=== PATIENT | female | born 1950 | race Caucasian/White ===

== ENCOUNTER 2017-12-01 08:26 | Day surgery (SDC) | payer MEDICARE, MEDICAID ==
[2017-11-24 14:39] LABS: BASOPHILS % (AUTO) 0.5 % (0-1); EOSINOPHILS # (AUTO) 0.3 X10'3 (0-0.9); EOSINOPHILS % (AUTO) 4.2 % (0-6); LYMPHOCYTES # (AUTO) 1.3 X10'3 (1.1-4.8); LYMPHOCYTES % (AUTO) 19.2 % (21-51); MEAN CORPUSCULAR HEMOGLOBIN 30.1 PG (27.0-31.0); MEAN CORPUSCULAR HGB CONC 33.5 % (33.0-36.5); MEAN CORPUSCULAR VOLUME 89.7 FL (78-98); MEAN PLATELET VOLUME 8.2 FL (7.4-10.4); MONOCYTES # (AUTO) 0.5 X10'3 (0-0.9); MONOCYTES % (AUTO) 6.8 % (2-12); NEUTROPHILS # (AUTO) 4.8 X10'3 (1.8-7.7); NEUTROPHILS % (AUTO) 69.3 % (42-75); PRE OP HEMATOCRIT 43.1 % (35.0-45.0); PRE OP HEMOGLOBIN 14.4 g/dL (12.0-16.0); PRE OP PLATELET COUNT 224 X10'3 (140-440); RED CELL DISTRIBUTION WIDTH 14.6 % (11.5-14.5)
[2017-11-24 14:45] LABS: PRE OP PROTIME 10.7 SECONDS (9.0-12.0)
[2017-11-24 14:57] LABS: ALBUMIN/GLOBULIN RATIO 1.2 (1.1-1.5); ALKALINE PHOSPHATASE 42 IU/L (46-116); BLOOD UREA NITROGEN 15 MG/DL (7-18); BUN/CREATININE RATIO 17.2 (6.6-38.0); CALCIUM 9.8 MG/DL (8.5-10.1); CHLORIDE 107 MMOL/L (99-107); CREATININE 0.87 MG/DL (0.40-0.90); PRE OP ALT 31 U/L (30-65); PRE OP ANION GAP 11 (8-16); PRE OP AST 29 U/L (10-37); PRE OP BILIRUB, TOTAL 0.4 MG/DL (0.0-1.0); PRE OP GLUCOSE 151 MG/DL (70-104); PRE OP POTASSIUM 4.1 MMOL/L (3.4-5.1); PRE OP SODIUM 145 MMOL/L (135-145); TOTAL CARBON DIOXIDE 27.2 MMOL/L (24-32); TOTAL PROTEIN 7.3 G/DL (6.4-8.2); eGFR 65 ML/MIN
[~2017-12-01] VITALS: Ht 162.6 cm; Wt 116.9 kg
[~2017-12-01 08:26] MED LIST: ACAR25TA2 PO; ACET-3068 PO; ALBU8.5H8 IH; AMIO200T57 PO; CLOP75TA15 PO; CYAN500L3 PO; ESTR0.6261 PO; FE F PO; FENO48TA15 PO; GABA300C PO; INSU100V12 SQ; LISI40TA4 PO; METF750T2 PO; NYSPWD TP; OMEG1CAP13 PO; PRAV80TA3 PO; SYN0.088T PO; VITC500T PO; [UNRECOGNIZED DRUG - OTHER] TOP; albuterol 2.5 MG/3 ML nebule NEB ONE; ceFAZolin inj. 2,000 MG in dextrose 5%-water 100 ML IV ONE; famotidine 20mg tablet PO ONE; ringers solution, lacted 1,000 ML IV SCH
[2017-12-01 08:45] VITALS: BP 140/84
[2017-12-01] MEDS ORDERED: LIDOcaine 1% (10mg/ml) 2ml vial ONE (09:04)
[2017-12-01] MEDS ORDERED: ringers solution, lacted 1,000 ML IV SCH (10:39)
[2017-12-01] MEDS ORDERED: proCHLORperazine 10 MG/2 ml inj IV PRN (10:40)
[2017-12-01] MEDS ORDERED: ondansetron/PF 4mg/2ml inj IV PRN (10:40)
[2017-12-01] MEDS ORDERED: morphine 4 MG/ML inj SYRINge IV PRN ×2 (10:40)
[2017-12-01] MEDS ORDERED: meperidine/PF 25mg/ml syringe IV PRN ×3 (10:40)
[2017-12-01] MEDS ORDERED: ROPIVAcaine 0.5% (5mg/ml) 30ml vial ONE (10:57)
[2017-12-01] MEDS ORDERED: LIDOcaine 0.5% (5mg/ml) 50ml vial ONE (11:00)
[2017-12-01] MEDS ORDERED: sevoflurane 250ml liquid IH ONE (11:01)
[2017-12-01] MEDS ORDERED: fentaNYL/PF 50MCG/1 ML 2ML syringe ONE ×2 (11:03→11:25)
[2017-12-01] MEDS ORDERED: midazolam 2 mg/2 ml injection ONE (11:03)
[2017-12-01] MEDS ORDERED: propofol inj 20 ML IV ONE (12:00)
[2017-12-01] MEDS ORDERED: ondansetron/PF 4mg/2ml inj ONE (12:00)
[2017-12-01 12:05] VITALS: BP 145/72
[2017-12-01 12:15] VITALS: BP 142/54
[2017-12-01] MEDS ORDERED: acetaminophen 1,000mg/100ml IV 100 ML IV ONE (12:20)
[2017-12-01 12:25] VITALS: BP 147/60
[2017-12-01 12:35] VITALS: BP 141/74
[2017-12-01 12:45] VITALS: BP 145/65
== END 2017-12-01 13:00 | disposition home or self-care (01) ==
LOC: PAS 08:26
PROVIDERS: ATTEND Orthopaedic Surgery Hand Surgery
DX: M18.11 Unilateral primary osteoarthritis of first carpometacarpal joint, right hand (principal); M65.341 Trigger finger, right ring finger; M25.741 Osteophyte, right hand; I49.1 Atrial premature depolarization; J45.998 Other asthma; I10 Essential (primary) hypertension; I25.2 Old myocardial infarction; I49.8 Other specified cardiac arrhythmias; E66.9 Obesity, unspecified; E11.9 Type 2 diabetes mellitus without complications; I25.10 Atherosclerotic heart disease of native coronary artery without angina pectoris; E78.5 Hyperlipidemia, unspecified; M19.90 Unspecified osteoarthritis, unspecified site; E03.9 Hypothyroidism, unspecified; F32.9 Major depressive disorder, single episode, unspecified; Z88.5 Allergy status to narcotic agent; Z88.6 Allergy status to analgesic agent; Z86.73 Personal history of transient ischemic attack (TIA), and cerebral infarction without residual deficits; Z79.891 Long term (current) use of opiate analgesic; Z79.84 Long term (current) use of oral hypoglycemic drugs; Z91.048 Other nonmedicinal substance allergy status; Z79.01 Long term (current) use of anticoagulants; Z90.49 Acquired absence of other specified parts of digestive tract; Z95.5 Presence of coronary angioplasty implant and graft; Z90.89 Acquired absence of other organs; Z90.710 Acquired absence of both cervix and uterus; Z79.4 Long term (current) use of insulin; Z79.899 Other long term (current) drug therapy; Z98.890 Other specified postprocedural states; Z68.41 Body mass index [BMI] 40.0-44.9, adult
CPT/HCPCS: 25445; 26055; 36415; 80053; 82948; 84443; 85025; 85610; 85730; 93005; J0131; J0690; J2001; J2175; J2250; J2270; J2405; J2704; J2795; J3010; J3490; J7060; J7120; A6222; A6449; A7000; L8630

== ENCOUNTER 2019-05-10 10:35 | Day surgery (SDC) | payer MEDICARE, MEDICAID ==
[2019-05-10] VITALS (7 sets, daily range): BP systolic 134–168; BP diastolic 70–84
[~2019-05-10] VITALS: Ht 162.6 cm; Wt 114.7 kg
[~2019-05-10 10:35] MED LIST changes: -AMIO200T57 PO; +AMIO200T61 PO; -METF750T2 PO; +METF750T46 PO; -albuterol 2.5 MG/3 ML nebule NEB ONE; -ceFAZolin inj. 2,000 MG in dextrose 5%-water 100 ML IV ONE; -famotidine 20mg tablet PO ONE; -ringers solution, lacted 1,000 ML IV SCH
[2019-05-10] MEDS ORDERED: normal saline 1,000 ML IV SCH (11:10)
[2019-05-10 11:25] LABS: BASOPHILS # (AUTO) 0.1 X10'3 (0-0.2); BASOPHILS % (AUTO) 1.3 % (0-1); EOSINOPHILS # (AUTO) 0.3 X10'3 (0-0.9); EOSINOPHILS % (AUTO) 6.5 % (0-6); HEMATOCRIT 43.3 % (35.0-45.0); HEMOGLOBIN 14.2 g/dl (12.0-16.0); LYMPHOCYTES # (AUTO) 1.1 X10'3 (1.1-4.8); LYMPHOCYTES % (AUTO) 27.4 % (21-51); MEAN CORPUSCULAR HEMOGLOBIN 29.9 PG (27.0-31.0); MEAN CORPUSCULAR HGB CONC 32.8 g/dL (33.0-36.5); MEAN CORPUSCULAR VOLUME 91.4 FL (78-98); MEAN PLATELET VOLUME 8.1 FL (7.4-10.4); MONOCYTES # (AUTO) 0.3 X10'3 (0-0.9); MONOCYTES % (AUTO) 8.3 % (2-12); NEUTROPHILS # (AUTO) 2.3 X10'3 (1.8-7.7); NEUTROPHILS % (AUTO) 56.5 % (42-75); PLATELET COUNT 202 X10'3 (140-440); RED BLOOD COUNT 4.74 X10'6 (4.20-5.60); RED CELL DISTRIBUTION WIDTH 14.8 % (11.5-14.5)
[2019-05-10 11:41] LABS: ALBUMIN 4.4 G/DL (3.4-5.0); ANION GAP 9 (8-16); BLOOD UREA NITROGEN 18 MG/DL (7-18); BUN/CREATININE RATIO 21.7 (6.6-38.0); CALCIUM 9.8 MG/DL (8.5-10.1); CHLORIDE 103 MMOL/L (99-107); CREATININE 0.83 MG/DL (0.40-0.90); GLUCOSE 201 MG/DL (70-104); MAGNESIUM 1.6 MG/DL (1.5-2.4); POTASSIUM 4.2 MMOL/L (3.5-5.1); SODIUM 139 MMOL/L (135-145); TOTAL CARBON DIOXIDE 27.1 MMOL/L (24-32); eGFR 68 ML/MIN
[2019-05-10] MEDS ORDERED: ASPI-611 PO (11:50)
[2019-05-10] MEDS ORDERED: ACET-2119 PO (11:50)
[2019-05-10] MEDS ORDERED: proCHLORperazine 10 MG/2 ml inj ONE (15:57)
[2019-05-10] MEDS ORDERED: fentaNYL/PF 50MCG/1 ML 2ML syringe ONE ×3 (15:58→16:54)
[2019-05-10] MEDS ORDERED: midazolam 2 mg/2 ml injection ONE ×3 (15:58→17:19)
[2019-05-10] MEDS ORDERED: vancomycin 1,000mg inj ONE (15:58)
[2019-05-10] MEDS ORDERED: LIDOcaine 1% W/epiNEPHrine 1:100,000 20ml vial ONE ×2 (15:58→16:55)
[2019-05-10] MEDS ORDERED: ceFAZolin 1GM/D5W- ADD-VANTAGE 100 ML IV ONE (15:58)
[2019-05-10] MEDS ORDERED: diphenhydrAMINE 50 mg/ml inj ONE (16:53)
[2019-05-10] MEDS ORDERED: normal saline 500ml IV soln 500 ML IV ONE (18:40)
[2019-05-10] MEDS ORDERED: HYDROcodone/acetaminophen 10/325mg tab PO PRN (18:40)
[2019-05-10] MEDS ORDERED: HYDROcodone/acetaminophen 5mg/325mg tablet PO PRN (18:40)
[2019-05-10] MEDS ORDERED: normal saline 1000ml 1,000 ML IV ONE (18:44)
== END 2019-05-10 20:00 | disposition home or self-care (01) ==
LOC: SSTAY O 10:35
PROVIDERS: ATTEND Internal Medicine Cardiovascular Disease
DX: I49.5 Sick sinus syndrome (principal); I25.10 Atherosclerotic heart disease of native coronary artery without angina pectoris; I25.2 Old myocardial infarction; I10 Essential (primary) hypertension; E78.5 Hyperlipidemia, unspecified; E11.9 Type 2 diabetes mellitus without complications; E03.9 Hypothyroidism, unspecified; J45.909 Unspecified asthma, uncomplicated; I48.0 Paroxysmal atrial fibrillation; Z86.73 Personal history of transient ischemic attack (TIA), and cerebral infarction without residual deficits; Z79.82 Long term (current) use of aspirin; Z79.01 Long term (current) use of anticoagulants; Z79.899 Other long term (current) drug therapy; Z98.890 Other specified postprocedural states; Z90.49 Acquired absence of other specified parts of digestive tract
CPT/HCPCS: 33208; 36415; 71045; 80048; 83735; 85025; 85610; 99152; 99153; C1785; C1894; C1898; J0690; J0780; J1200; J2250; J3010; J3370; J7030; J7040; J7050; 93005; A4620

== ENCOUNTER 2020-08-28 06:04 | Day surgery (SDC) | payer MEDICARE, MEDICAID ==
[2020-08-20 11:32] LABS: BASOPHILS % (AUTO) 0.9 % (0-1); EOSINOPHILS # (AUTO) 0.3 X10'3 (0-0.9); EOSINOPHILS % (AUTO) 6.9 % (0-6); LYMPHOCYTES # (AUTO) 0.9 X10'3 (1.1-4.8); LYMPHOCYTES % (AUTO) 21.1 % (21-51); MEAN CORPUSCULAR HEMOGLOBIN 30.1 PG (27.0-31.0); MEAN CORPUSCULAR HGB CONC 32.7 g/dL (33.0-36.5); MEAN CORPUSCULAR VOLUME 91.9 FL (78-98); MEAN PLATELET VOLUME 8.6 FL (7.4-10.4); MONOCYTES # (AUTO) 0.3 X10'3 (0-0.9); MONOCYTES % (AUTO) 7.8 % (2-12); NEUTROPHILS # (AUTO) 2.8 X10'3 (1.8-7.7); NEUTROPHILS % (AUTO) 63.3 % (42-75); PRE OP HEMOGLOBIN 13.1 g/dL (12.0-16.0); PRE OP PLATELET COUNT 189 X10'3 (140-440); RED BLOOD COUNT 4.35 X10'6 (4.20-5.60); RED CELL DISTRIBUTION WIDTH 14.8 % (11.5-14.5)
[2020-08-20 11:44] LABS: PRE OP PROTIME 10.8 SECONDS (9.0-12.0)
[2020-08-20 12:04] LABS: ALBUMIN/GLOBULIN RATIO 1.2 (1.1-1.5); ALKALINE PHOSPHATASE 41 IU/L (46-116); BLOOD UREA NITROGEN 16 MG/DL (7-18); CALCIUM 9.2 MG/DL (8.5-10.1); CHLORIDE 103 MMOL/L (99-107); CREATININE 0.84 MG/DL (0.40-0.90); PRE OP ALT 42 U/L (30-65); PRE OP ANION GAP 10 (8-16); PRE OP AST 55 U/L (10-37); PRE OP BILIRUB, TOTAL 0.4 MG/DL (0.0-1.0); PRE OP GLUCOSE 181 MG/DL (70-104); PRE OP SODIUM 141 MMOL/L (135-145); TOTAL CARBON DIOXIDE 27.9 MMOL/L (24-32); TOTAL PROTEIN 7.4 G/DL (6.4-8.2); eGFR 67 ML/MIN
[~2020-08-28] VITALS: Ht 162.6 cm; Wt 117.3 kg
[~2020-08-28 06:04] MED LIST changes: +AMA1T PO; +ASPI-611 PO; +CLON0.1T2 PO; -ESTR0.6261 PO; +LISI40TA13 PO; -LISI40TA4 PO; +NITR0.4T48 SL; +ceFAZolin 2gm in dextrose, iso 50 ML IV ONE; +famotidine 20mg tablet PO ONE; +ringers solution, lacted 1,000 ML IV SCH
[2020-08-28 06:25] VITALS: BP 141/95
[2020-08-28] MEDS ORDERED: BUPIVAcaine/PF 2.5 mg/ml (0.25%) 30ml vial ONE (06:53)
[2020-08-28] MEDS ORDERED: LIDOcaine 1% 30ml preserv. free vial ONE (07:25)
[2020-08-28] MEDS ORDERED: fentaNYL/PF 50MCG/1 ML 2ML syringe ONE (07:53)
[2020-08-28] MEDS ORDERED: midazolam 1 mg/ML 2ml injection ONE ×2 (07:54→08:43)
[2020-08-28] MEDS ORDERED: ketorolac trometh. 30mg/ml inj. ONE (07:55)
[2020-08-28] MEDS ORDERED: LIDOcaine 2% (20mg/ml) 5ml vial ONE (08:44)
[2020-08-28] MEDS ORDERED: propofol inj 20 ML IV ONE (08:44)
[2020-08-28 09:07] VITALS: BP 128/65
--- NOTE | 2020-08-28 09:07 | NUR ---
Received from OR via [facility], accompanied by Anesthesiologist and report given by Anesthesiologist. PATIENT IS LAYING IN GURNEY, AWAKE AND ALERT, PIC ON LEFT HAND 20G LR RUNNING, RIGHT HAND WITH BANDAGE AND WRAP CDI, PATIENT IS ABLE TO WIGGLE HER FINGERS ON LEFT HAND, STATES RIGHT THUMB IS THROBBING, WILL MONITOR. Addendum: 08/28/20 at 0917 by Shantell Cardoza RN Amended: Links added.
--- NOTE | 2020-08-28 09:13 | NUR ---
Received from OR via [facility] , accompanied by Anesthesiologist and report given by Anesthesiolgist.
[2020-08-28 09:20] VITALS: BP 124/61
[2020-08-28] MEDS ORDERED: HYDROcodone/acetaminophen 10/325mg tab PO ONE (09:20)
[2020-08-28 09:30] VITALS: BP 119/64
[2020-08-28 09:40] VITALS: BP 140/64
[2020-08-28 09:50] VITALS: BP 141/72
--- NOTE | 2020-08-28 09:57 | NUR ---
PATIENT IS WAKE AND ALERT, VERBALIZED UNDERSTANDING FOR DISCHARGE INSTRUCTIONS. 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 PIV REMOVED FROM LEFT HAND 20G INTACT, RIGHT HAND AND WRIST WITH DRESSING AND WRAP CDI, PATIENT IS ABLE TO MOVE RIGHT FINGERS AND CAP REFILL OF 2-3 SEC ON RIGHT HAND AND FINGERS, PATIENT'S PAIN ON RIGHT THUMB IS UNDER CONTROL AND PATIENT IS NOT IN DISTRESS. ICE ON RIGHT HAND. Addendum: 08/28/20 at 1012 by Shantell Cardoza RN Amended: Links added.
== END 2020-08-28 09:57 | disposition home or self-care (01) ==
LOC: PAS 06:04
PROVIDERS: ATTEND Orthopaedic Surgery Hand Surgery
DX: T84.84XA Pain due to internal orthopedic prosthetic devices, implants and grafts, initial encounter (principal); M18.11 Unilateral primary osteoarthritis of first carpometacarpal joint, right hand; E11.9 Type 2 diabetes mellitus without complications; M19.90 Unspecified osteoarthritis, unspecified site; Z95.5 Presence of coronary angioplasty implant and graft; Z98.890 Other specified postprocedural states; Z90.710 Acquired absence of both cervix and uterus; Z85.828 Personal history of other malignant neoplasm of skin; Z79.01 Long term (current) use of anticoagulants; Z88.8 Allergy status to other drugs, medicaments and biological substances; I48.91 Unspecified atrial fibrillation; Z86.718 Personal history of other venous thrombosis and embolism; E66.9 Obesity, unspecified; Z95.0 Presence of cardiac pacemaker; Y83.8 Other surgical procedures as the cause of abnormal reaction of the patient, or of later complication, without mention of misadventure at the time of the procedure; Z68.41 Body mass index [BMI] 40.0-44.9, adult
CPT/HCPCS: 20680; 25447; 36415; 80053; 85025; 85610; 85730; 87635; 93005; A6222; J1885; J2001; J2250; J2704; J3010; J3490; A4215; A4615; J7120

== ENCOUNTER 2023-09-01 16:42 | Emergency (ER) | payer MEDICARE, MEDICAID ==
[~2023-09-01] VITALS: Ht 162.6 cm; Wt 100.0 kg
[~2023-09-01 16:42] MED LIST changes: +ALBU8.5H17 IH; -ALBU8.5H8 IH; +AMI200T PO; -AMIO200T61 PO; +OMEG-5 PO; -OMEG1CAP13 PO; -ceFAZolin 2gm in dextrose, iso 50 ML IV ONE; -famotidine 20mg tablet PO ONE; -ringers solution, lacted 1,000 ML IV SCH
[2023-09-01 16:56] VITALS: BP 111/72; PULSE 63; TEMP 98.1; O2SAT 97
[2023-09-01 18:19] LABS: BASOPHILS % (AUTO) 0.8 % (0-1); EOSINOPHILS # (AUTO) 0.1 X10'3 (0-0.9); EOSINOPHILS % (AUTO) 3.6 % (0-6); HEMATOCRIT 36.8 % (35.0-45.0); HEMOGLOBIN 11.9 g/dl (12.0-16.0); LYMPHOCYTES # (AUTO) 1.1 X10'3 (1.1-4.8); LYMPHOCYTES % (AUTO) 27.4 % (21-51); MEAN CORPUSCULAR HEMOGLOBIN 31.7 PG (27.0-31.0); MEAN CORPUSCULAR HGB CONC 32.5 g/dL (33.0-36.5); MEAN CORPUSCULAR VOLUME 97.7 FL (78-98); MEAN PLATELET VOLUME 7.8 FL (7.4-10.4); MONOCYTES # (AUTO) 0.3 X10'3 (0-0.9); MONOCYTES % (AUTO) 8.5 % (2-12); NEUTROPHILS # (AUTO) 2.3 X10'3 (1.8-7.7); NEUTROPHILS % (AUTO) 59.7 % (42-75); PLATELET COUNT 170 X10'3 (140-440); RED BLOOD COUNT 3.76 X10'6 (4.20-5.60); RED CELL DISTRIBUTION WIDTH 14.9 % (11.5-14.5); WHITE BLOOD COUNT 3.9 X10'3 (4.5-11.0)
[2023-09-01 18:35] LABS: ALBUMIN 3.7 G/DL (3.4-5.0); ANION GAP 9 (8-16); BLOOD UREA NITROGEN 20 MG/DL (7-18); BUN/CREATININE RATIO 23.5 (10.0-20.0); CALCIUM 8.6 MG/DL (8.5-10.1); CHLORIDE 106 MMOL/L (99-107); CREATININE 0.85 MG/DL (0.40-0.90); GLUCOSE 154 MG/DL (70-104); POTASSIUM 3.9 MMOL/L (3.5-5.1); PRO BRAIN NATRIURETIC PEPTIDE 180 PG/ML (0-125); SODIUM 142 MMOL/L (135-145); eCRCL 51 ML/MIN; eGFR 66 ML/MIN
[2023-09-01] MEDS ORDERED: AMOX-117 PO (19:26)
[2023-09-01] MEDS ORDERED: DOXY-457 PO (19:26)
[2023-09-01] MEDS ORDERED: PRED20TA PO (19:27)
[2023-09-01 19:40] VITALS: RESP 16
== END 2023-09-01 19:41 | disposition home or self-care (01) ==
LOC: ER 16:42
DX: J20.9 Acute bronchitis, unspecified (principal); J01.00 Acute maxillary sinusitis, unspecified; I11.0 Hypertensive heart disease with heart failure; E11.9 Type 2 diabetes mellitus without complications; Z88.1 Allergy status to other antibiotic agents; Z79.899 Other long term (current) drug therapy; Z88.5 Allergy status to narcotic agent; Z88.6 Allergy status to analgesic agent
CPT/HCPCS: 36415; 71046; 80048; 83605; 83880; 85025; 87040; 99284

== ENCOUNTER 2023-09-09 12:48 | Emergency (ER) | payer MEDICARE, MEDICAID ==
[~2023-09-09] VITALS: Ht 162.6 cm; Wt 97.5 kg
[~2023-09-09 12:48] MED LIST changes: +AMOX-117 PO; +DOXY-457 PO
[2023-09-09 12:52] VITALS: BP 164/99; PULSE 78; RESP 16; TEMP 97.7; O2SAT 99
== END 2023-09-09 14:36 | disposition home or self-care (01) ==
LOC: ER 12:50
DX: R05.9 Cough, unspecified (principal); I10 Essential (primary) hypertension; I25.10 Atherosclerotic heart disease of native coronary artery without angina pectoris; E11.9 Type 2 diabetes mellitus without complications; M19.90 Unspecified osteoarthritis, unspecified site; Z88.8 Allergy status to other drugs, medicaments and biological substances; Z79.899 Other long term (current) drug therapy; Z79.4 Long term (current) use of insulin; Z79.82 Long term (current) use of aspirin
CPT/HCPCS: 71046; 99283

== ENCOUNTER 2023-09-29 15:37 | Emergency (ER) | payer MEDICARE, MEDICAID ==
[~2023-09-29] VITALS: Ht 162.6 cm; Wt 98.9 kg
[~2023-09-29 15:37] MED LIST changes: -AMOX-117 PO; -DOXY-457 PO
[2023-09-29 15:39] VITALS: BP 156/91; PULSE 74; TEMP 98; O2SAT 97
[2023-09-29 16:06] VITALS: RESP 17
[2023-09-29] MEDS: oxyCODONE/APAP 5-325mg tablet PO ONE (16:06)
== END 2023-09-29 17:13 | disposition home or self-care (01) ==
LOC: ER 15:37
DX: M79.671 Pain in right foot (principal); I25.10 Atherosclerotic heart disease of native coronary artery without angina pectoris; I10 Essential (primary) hypertension; E11.9 Type 2 diabetes mellitus without complications; M19.90 Unspecified osteoarthritis, unspecified site; Z88.8 Allergy status to other drugs, medicaments and biological substances
CPT/HCPCS: 73630; 99283

== ENCOUNTER 2024-04-07 16:12 | Inpatient (IN) | payer MEDICARE, MEDICAID ==
[~2024-04-07] VITALS: Ht 162.6 cm; Wt 91.9 kg
[~2024-04-07 16:12] MED LIST changes: -AMA1T PO; +GLIM1TAB57 PO
[2024-04-07 17:02] LABS: BILIRUBIN,URINE NEGATIVE (Neg); CLARITY,URINE CLOUDY (Clear); COLOR,URINE YELLOW (Yellow); GLUCOSE, URINE NEGATIVE (Neg); KETONES,URINE NEGATIVE (Neg); LEUKOCYTE ESTERASE ,URINE SMALL (Neg); NITRITES, URINE NEGATIVE (Neg); OCCULT BLOOD,URINE NEGATIVE (Neg); PH,URINE 7.5 (4.8-8.0); PROTEIN,URINE TRACE mg/dl (Neg); UA COLLECTION TYPE CLN CATCH MIDSTREAM
[2024-04-07 17:09] LABS: MUCUS STRANDS FEW /LPF (Neg); SQUAMOUS EPITHELIAL CELL,UR MODERATE /LPF (FEW)
[2024-04-07 17:10] LABS: BACTERIA,URINE 1+ /HPF (Neg); RBC,URINE 0-2 /HPF (0-2)
[2024-04-07] MEDS: acetaminophen 1,000mg/100ml IV 100 ML IV STA (17:16)
[2024-04-07] MEDS ORDERED: cefepime 1GM/NS ADD-VANTAGE 100 ML IV ONE (17:20)
[2024-04-07 17:58] LABS: ALANINE AMINOTRANSFERASE 21 U/L (12-78); ALBUMIN 3.7 G/DL (3.4-5.0); ALKALINE PHOSPHATASE 42 IU/L (46-116); ANION GAP 7 (8-16); ASPARTATE AMINO TRANSFERASE 29 U/L (10-37); BILIRUBIN,DIRECT 0.5 MG/DL (0-0.3); BILIRUBIN,TOTAL 1.2 MG/DL (0.1-1.0); BLOOD UREA NITROGEN 15 MG/DL (7-18); BUN/CREATININE RATIO 16.1 (10.0-20.0); CALCIUM 9.4 MG/DL (8.5-10.1); CHLORIDE 101 MMOL/L (99-107); CREATININE 0.93 MG/DL (0.40-0.90); GLUCOSE 130 MG/DL (70-104); MAGNESIUM 1.8 MG/DL (1.5-2.4); POTASSIUM 4.2 MMOL/L (3.5-5.1); SODIUM 136 MMOL/L (135-145); TOTAL PROTEIN 7.4 G/DL (6.4-8.2); eCRCL 47 ML/MIN; eGFR 59 ML/MIN
[2024-04-07] MEDS: CefTRIAXone/D5W-Rocephin 1gm 50 ML IV ONE (18:13)
[2024-04-07 19:28] LABS: BASOPHILS % (AUTO) 0.3 % (0-1); EOSINOPHILS % (AUTO) 0.3 % (0-6); HEMATOCRIT 38.4 % (35.0-45.0); HEMOGLOBIN 12.7 g/dl (12.0-16.0); LYMPHOCYTES # (AUTO) 0.3 X10'3 (1.1-4.8); LYMPHOCYTES % (AUTO) 5.3 % (21-51); MEAN CORPUSCULAR HEMOGLOBIN 31.9 PG (27.0-31.0); MEAN CORPUSCULAR VOLUME 96.7 FL (78-98); MEAN PLATELET VOLUME 8.6 FL (7.4-10.4); MONOCYTES # (AUTO) 0.4 X10'3 (0-0.9); MONOCYTES % (AUTO) 8.9 % (2-12); NEUTROPHILS # (AUTO) 4.1 X10'3 (1.8-7.7); NEUTROPHILS % (AUTO) 85.2 % (42-75); RED BLOOD COUNT 3.97 X10'6 (4.20-5.60); WHITE BLOOD COUNT 4.8 X10'3 (4.5-11.0)
[2024-04-07 19:59] LABS: PLATELET COUNT 93 X10'3 (140-440)
[2024-04-07] MEDS ORDERED: ondansetron/PF 4mg/2ml inj IV PRN (21:40)
[2024-04-07] MEDS ORDERED: morphine 2 MG/ML inj. syringe IV PRN (21:40)
[2024-04-07 23:10] LABS: FREE T4 (FREE THYROXINE) 1.75 NG/DL (0.73-1.40); THYROID STIMULATING HORMONE 0.92 ulU/ml (0.34-4.50)
[2024-04-07] MEDS ORDERED: glucagon, human recombinant 1mg kit SUBCUT PRN (23:35)
[2024-04-07] MEDS ORDERED: dextrose 50%-water 50ml dispensing syringe IV PRN ×2 (23:35)
[2024-04-07] MEDS ORDERED: DEXTROSE 15 GM of carb/4 tabs (each vial/BOTTLE has 4 tablets) PO PRN ×2 (23:35)
[2024-04-08] MEDS: acetaminophen 1,000mg/100ml IV 100 ML IV SCH (01:33)
[2024-04-08 03:01] LABS: BASOPHILS % (AUTO) 0.3 % (0-1); EOSINOPHILS % (AUTO) 0.2 % (0-6); HEMATOCRIT 39.2 % (35.0-45.0); LYMPHOCYTES # (AUTO) 0.3 X10'3 (1.1-4.8); LYMPHOCYTES % (AUTO) 6.8 % (21-51); MEAN CORPUSCULAR HEMOGLOBIN 32.1 PG (27.0-31.0); MEAN CORPUSCULAR HGB CONC 33.1 g/dL (33.0-36.5); MEAN CORPUSCULAR VOLUME 97.1 FL (78-98); MEAN PLATELET VOLUME 8.5 FL (7.4-10.4); MONOCYTES # (AUTO) 0.5 X10'3 (0-0.9); MONOCYTES % (AUTO) 9.9 % (2-12); NEUTROPHILS % (AUTO) 82.8 % (42-75); PLATELET COUNT 106 X10'3 (140-440); RED BLOOD COUNT 4.03 X10'6 (4.20-5.60); WHITE BLOOD COUNT 4.8 X10'3 (4.5-11.0)
[2024-04-08 03:08] LABS: ALBUMIN 2.9 G/DL (3.4-5.0); ANION GAP 8 (8-16); BLOOD UREA NITROGEN 13 MG/DL (7-18); BUN/CREATININE RATIO 16.3 (10.0-20.0); CALCIUM 8.8 MG/DL (8.5-10.1); CHLORIDE 100 MMOL/L (99-107); GLUCOSE 147 MG/DL (70-104); POTASSIUM 3.9 MMOL/L (3.5-5.1); SODIUM 132 MMOL/L (135-145); TOTAL CARBON DIOXIDE 23.6 MMOL/L (24-32); eCRCL 54 ML/MIN; eGFR 70 ML/MIN
[2024-04-08] MEDS: INSULIN LISPRO 100 UNIT/ML INSULN.PEN MULTI-DOSE SQ SCH (07:00)
[2024-04-08] MEDS: acetaminophen 325mg tablet PO PRN (07:04)
[2024-04-08 08:00] VITALS: RESP 16
[2024-04-08] MEDS: aspirin 81mg, enteric-coated 1 TAB TABLET.DR PO SCH (08:00)
[2024-04-08] MEDS: enoxaparin 40mg/0.4ml syringe SUBCUT SCH (08:00)
[2024-04-08] MEDS: amiodarone 200mg tablet PO SCH (08:00)
[2024-04-08 08:44] VITALS: BP 132/62; PULSE 74; RESP 19; TEMP 98.7; O2SAT 98
[2024-04-08] MEDS: lisinopril 5mg tablet PO SCH (08:53)
[2024-04-08] MEDS: levoTHYROXINE 75mcg tablet PO SCH (08:54)
[2024-04-08] MEDS: LIDOcaine 5% patch TP SCH (08:55)
[2024-04-08 10:00] VITALS: BP 125/61; PULSE 63; RESP 20; TEMP 98.1; O2SAT 94
[2024-04-08] MEDS: CefTRIAXone/D5W-Rocephin 1gm 50 ML IV SCH (17:45)
[2024-04-08 18:00] VITALS: BP 138/64; PULSE 65; RESP 20; TEMP 99.3; O2SAT 98
[2024-04-08 20:00] VITALS: RESP 20; O2SAT 98
[2024-04-08] MEDS: FE FUMARATE PO SCH (20:00)
[2024-04-08] MEDS: [UNRECOGNIZED DRUG - OTHER] PO SCH (20:00)
[2024-04-08] MEDS: VIT C PO SCH (20:00)
[2024-04-08] MEDS: atorvastatin 10mg tablet PO SCH (20:16)
[2024-04-08] MEDS: gabapentin 300mg capsule PO SCH (20:16)
[2024-04-08] MEDS: insulin glargine (Lantus) pen - multi-dose SQ SCH (20:23)
[2024-04-08 22:00] VITALS: BP 114/57; PULSE 65; RESP 13; TEMP 99.8; O2SAT 97
[2024-04-08] MEDS: nystatin 15 GM powder TP PRN (23:33)
[2024-04-09 06:00] VITALS: BP_SYST 106; BP_SYST 83; BP_DIAS 45; BP_DIAS 52; PULSE 64; PULSE 70; RESP 13; TEMP 97.1; O2SAT 97
[2024-04-09 06:05] LABS: BASOPHILS % (AUTO) 0.5 % (0-1); EOSINOPHILS # (AUTO) 0.1 X10'3 (0-0.9); HEMATOCRIT 36.1 % (35.0-45.0); LYMPHOCYTES # (AUTO) 0.6 X10'3 (1.1-4.8); MEAN CORPUSCULAR HGB CONC 33.2 g/dL (33.0-36.5); MEAN CORPUSCULAR VOLUME 96.3 FL (78-98); MEAN PLATELET VOLUME 8.3 FL (7.4-10.4); MONOCYTES # (AUTO) 0.6 X10'3 (0-0.9); MONOCYTES % (AUTO) 16.4 % (2-12); NEUTROPHILS # (AUTO) 2.3 X10'3 (1.8-7.7); NEUTROPHILS % (AUTO) 65.1 % (42-75); PLATELET COUNT 114 X10'3 (140-440); RED BLOOD COUNT 3.75 X10'6 (4.20-5.60); RED CELL DISTRIBUTION WIDTH 13.5 % (11.5-14.5); WHITE BLOOD COUNT 3.5 X10'3 (4.5-11.0)
[2024-04-09 06:08] LABS: ALBUMIN 2.7 G/DL (3.4-5.0); ANION GAP 7 (8-16); BLOOD UREA NITROGEN 13 MG/DL (7-18); BUN/CREATININE RATIO 17.1 (10.0-20.0); CALCIUM 8.7 MG/DL (8.5-10.1); CHLORIDE 101 MMOL/L (99-107); CREATININE 0.76 MG/DL (0.40-0.90); GLUCOSE 113 MG/DL (70-104); POTASSIUM 3.7 MMOL/L (3.5-5.1); SODIUM 133 MMOL/L (135-145); TOTAL CARBON DIOXIDE 25.3 MMOL/L (24-32); eCRCL 57 ML/MIN; eGFR 75 ML/MIN
[2024-04-09 07:28] LABS: PLATELET ESTIMATE DECREASED; TOTAL CELLS COUNTED 100
[2024-04-09] MEDS: gabapentin 300mg capsule PO SCH (07:53)
[2024-04-09] MEDS: clopidogrel 75mg tablet PO SCH (07:53)
[2024-04-09] MEDS: cyanocobalamin 500mcg tablet PO SCH (07:54)
[2024-04-09] MEDS: fenofibrate 48mg tablet PO SCH (07:54)
[2024-04-09] MEDS: ascorbic acid 500mg tablet PO SCH (07:54)
[2024-04-09] MEDS: amiodarone 100mg tablet PO SCH (07:56)
[2024-04-09 08:00] VITALS: RESP 17; O2SAT 98
[2024-04-09 10:00] VITALS: BP 96/58; PULSE 60; RESP 17; TEMP 98.7; O2SAT 98
[2024-04-10 06:00] VITALS: BP 122/68; PULSE 60; RESP 14; TEMP 97.1; O2SAT 98
[2024-04-10 06:12] LABS: ALBUMIN 2.6 G/DL (3.4-5.0); ANION GAP 6 (8-16); BLOOD UREA NITROGEN 14 MG/DL (7-18); BUN/CREATININE RATIO 19.4 (10.0-20.0); CALCIUM 8.9 MG/DL (8.5-10.1); CHLORIDE 102 MMOL/L (99-107); CREATININE 0.72 MG/DL (0.40-0.90); GLUCOSE 103 MG/DL (70-104); POTASSIUM 3.7 MMOL/L (3.5-5.1); SODIUM 135 MMOL/L (135-145); TOTAL CARBON DIOXIDE 27.2 MMOL/L (24-32); eCRCL 60 ML/MIN; eGFR 79 ML/MIN
[2024-04-10 06:18] LABS: EOSINOPHILS # (AUTO) 0.1 X10'3 (0-0.9); EOSINOPHILS % (AUTO) 3.3 % (0-6); HEMATOCRIT 36.4 % (35.0-45.0); HEMOGLOBIN 12.2 g/dl (12.0-16.0); LYMPHOCYTES # (AUTO) 0.7 X10'3 (1.1-4.8); LYMPHOCYTES % (AUTO) 21.3 % (21-51); MEAN CORPUSCULAR HEMOGLOBIN 32.1 PG (27.0-31.0); MEAN CORPUSCULAR HGB CONC 33.5 g/dL (33.0-36.5); MEAN CORPUSCULAR VOLUME 95.8 FL (78-98); MEAN PLATELET VOLUME 8.6 FL (7.4-10.4); MONOCYTES # (AUTO) 0.4 X10'3 (0-0.9); MONOCYTES % (AUTO) 13.5 % (2-12); NEUTROPHILS % (AUTO) 60.9 % (42-75); PLATELET COUNT 129 X10'3 (140-440); RED BLOOD COUNT 3.79 X10'6 (4.20-5.60); RED CELL DISTRIBUTION WIDTH 13.9 % (11.5-14.5); WHITE BLOOD COUNT 3.2 X10'3 (4.5-11.0)
[2024-04-10 07:00] VITALS: RESP 14; O2SAT 98
[2024-04-10] MEDS ORDERED: piperacillin/tazo 4.5gm/100ml 100 ML IV SCH (08:05)
[2024-04-10] MEDS ORDERED: ertapenem sod inj 1 GM in normal saline 100ml IV soln 100 ML IV SCH (08:15)
[2024-04-10] MEDS ORDERED: ertapenem sod inj 1 GM in normal saline 100ml IV soln 110 ML IV SCH (08:44)
[2024-04-10 10:00] VITALS: BP 100/60; PULSE 59; RESP 17; TEMP 97.6; O2SAT 99
[2024-04-10] MEDS: ertapenem sod inj 1 GM in normal saline 100ml IV soln 100 ML IV SCH (10:00)
[2024-04-10 14:20] VITALS: RESP 16; O2SAT 98
[2024-04-10 14:50] VITALS: BP 158/88; PULSE 65; RESP 16; TEMP 98; O2SAT 98
== END 2024-04-10 14:35 | disposition home health service (06) | DRG 872 ==
LOC: ER 16:12 → OBSVTOIN 21:42 → SUR 3N 21:42 → ED HOLD 21:42 → UNDOADMOB 21:42 → EDBEDREQ 04-08 02:52 → SUR 3N 04-08 07:25 → ED HOLD 04-08 07:25 → OBSVTOIN 04-08 08:19 → INTOOBSV 04-08 08:19
PROVIDERS: ADMIT Internal Medicine Critical Care Medicine; ATTEND Family Medicine
PROC: 05HB33Z Insertion of Infusion Device into Right Basilic Vein, Percutaneous Approach (ICD-10-PCS; principal; 2024-04-10)
DX: A41.51 Sepsis due to Escherichia coli [E. coli] (principal); N39.0 Urinary tract infection, site not specified; E87.1 Hypo-osmolality and hyponatremia; I48.20 Chronic atrial fibrillation, unspecified; Z20.822 Contact with and (suspected) exposure to COVID-19; I10 Essential (primary) hypertension; E03.9 Hypothyroidism, unspecified; I49.5 Sick sinus syndrome; E78.5 Hyperlipidemia, unspecified; I25.10 Atherosclerotic heart disease of native coronary artery without angina pectoris; E11.9 Type 2 diabetes mellitus without complications; Z95.0 Presence of cardiac pacemaker; Z95.5 Presence of coronary angioplasty implant and graft; Z90.710 Acquired absence of both cervix and uterus; Z88.8 Allergy status to other drugs, medicaments and biological substances; Z91.09 Other allergy status, other than to drugs and biological substances; Z79.84 Long term (current) use of oral hypoglycemic drugs; Z79.899 Other long term (current) drug therapy
CPT/HCPCS: 36410; 36415; 71045; 76536; 76770; 76942; 80048; 80076; 81001; 83036; 83605; 83735; 84145; 84439; 84443; 84484; 85007; 85025; 87040; 87077; 87081; 87088; 87186; 87811; 93005; 97161; 97530; 99285; A6449; C1751; G0378; J0131; J0696; J1335; J1815

== ENCOUNTER 2024-04-30 10:31 | Emergency (ER) | payer MEDICARE, MEDICAID ==
[~2024-04-30] VITALS: Ht 162.6 cm; Wt 93.0 kg
[2024-04-30 10:40] VITALS: BP 127/79; PULSE 78; RESP 16; TEMP 97.6; O2SAT 99
== END 2024-04-30 12:01 | disposition home or self-care (01) ==
LOC: ER 10:32
DX: M25.562 Pain in left knee (principal); I25.10 Atherosclerotic heart disease of native coronary artery without angina pectoris; I10 Essential (primary) hypertension; E11.9 Type 2 diabetes mellitus without complications; M19.90 Unspecified osteoarthritis, unspecified site; Z98.890 Other specified postprocedural states; Z88.8 Allergy status to other drugs, medicaments and biological substances; Z88.6 Allergy status to analgesic agent; Z79.82 Long term (current) use of aspirin; Z79.4 Long term (current) use of insulin; Z79.899 Other long term (current) drug therapy
CPT/HCPCS: 73564; 99283; A6449

== ENCOUNTER 2024-05-04 12:50 | Emergency (ER) | payer MEDICARE, MEDICAID ==
[~2024-05-04] VITALS: Ht 162.6 cm; Wt 91.8 kg
[2024-05-04 13:16] LABS: BILIRUBIN,URINE NEGATIVE (Neg); CLARITY,URINE CLEAR (Clear); COLOR,URINE YELLOW (Yellow); GLUCOSE, URINE NEGATIVE (Neg); KETONES,URINE TRACE mg/dl (Neg); LEUKOCYTE ESTERASE ,URINE TRACE (Neg); NITRITES, URINE NEGATIVE (Neg); OCCULT BLOOD,URINE NEGATIVE (Neg); PROTEIN,URINE NEGATIVE (Neg)
[2024-05-04 13:20] LABS: UA COLLECTION TYPE CLN CATCH MIDSTREAM
[2024-05-04 13:22] LABS: BACTERIA,URINE FEW /HPF (Neg); MUCUS STRANDS FEW /LPF (Neg); RBC,URINE 0-2 /HPF (0-2); SQUAMOUS EPITHELIAL CELL,UR MODERATE /LPF (FEW)
[2024-05-04] MEDS: sulfamethoxazole/trimethoprim DS (800/160mg) tablet PO STA (15:11)
[2024-05-04] MEDS ORDERED: SULF1TAB49 PO (15:19)
[2024-05-04 15:25] VITALS: BP 130/62; PULSE 81; RESP 16; TEMP 98.1; O2SAT 99
== END 2024-05-04 15:27 | disposition home or self-care (01) ==
LOC: ER 12:51
DX: N39.0 Urinary tract infection, site not specified (principal); I25.10 Atherosclerotic heart disease of native coronary artery without angina pectoris; I10 Essential (primary) hypertension; E11.9 Type 2 diabetes mellitus without complications; M19.90 Unspecified osteoarthritis, unspecified site; Z88.8 Allergy status to other drugs, medicaments and biological substances; Z88.5 Allergy status to narcotic agent; Z79.84 Long term (current) use of oral hypoglycemic drugs; Z79.82 Long term (current) use of aspirin; Z79.4 Long term (current) use of insulin; Z79.899 Other long term (current) drug therapy
CPT/HCPCS: 81001; 87077; 87088; 87186; 99283

== ENCOUNTER 2025-02-22 21:01 | Emergency (ER) | payer MEDICARE, MEDICAID ==
[~2025-02-22] VITALS: Ht 162.6 cm; Wt 75.4 kg
[~2025-02-22 21:01] MED LIST changes: -AMI200T PO; +AMIO200T76 PO; -LISI40TA13 PO; +LISI40TA20 PO; -PRAV80TA3 PO; +PRAV80TA75 PO
[2025-02-22 21:16] VITALS: TEMP 98.6
--- NOTE | 2025-02-22 21:31 | Physician Documentation ---
History of Present Illness ~ Chief Complaint: See Chief Complaint Stated Complaint: POSS COVID Time Seen by MD: 21:28 Primary Medical Doctor: Dr. Motta @ [facility] This is a very pleasant 74-year-old female who presented for evaluation of sore throat and fever starting today. No obvious trigger provocation. Potential COVID exposure. She wants to get tested for COVID. During the interview also reported left-sided chest pain. The particular palliating or aggravating factors. Not exertional or positional. Did not attempt to treat it. She does have known history of coronary artery disease, status post DE in 1995 and 1999, status post two stents, recent stent replacement several years ago. She is followed by Dr. Chou. She had a re cent echocardiogram and stress test which are negative, a month ago, during admission for TIA workup at [facility]. Denies any shortness a breath. No concern for tobacco, alcohol or illicit substances use Medication Reconciliation Allergies: Coded Allergies: celecoxib (Verified Allergy, Unknown, NERVES JUMPY/ ITCHING, 02/22/25) dabigatran etexilate (Unverified Allergy, Unknown, 02/22/25) BLEEDING hydromorphone (Unverified Allergy, Unknown, 02/22/25) pentazocine (Verified Allergy, Unknown, RESPIRATORY ( DECREASED), 02/22/25) rivaroxaban (Unverified Allergy, Unknown, 02/22/25) BLEEDING tramadol (Verified Allergy, Unknown, DIZZINESS,BREATHING,HVES, 02/22/25) tramadol HCl (Verified Allergy, Unknown, NERVES JUMPY, 02/22/25) Uncoded Allergies: TAPE (Allergy, Unknown, BLISTERS, 02/18/15) PLASTIC TAPE (Adverse Reaction, Unknown, 02/26/15) TAKES SKIN OFF Scheduled Acarbose* (Precose*), 50 MG PO HS, (Reported) Amiodarone Hcl (Cordarone), 1 TAB PO DAILY, (Reported) Ascorbic Acid* (Vitamin C*), 1,000 MG PO DAILY, (Reported) Aspirin (Aspir 81), 1 TAB PO DAILY, (Reported) Clopidogrel Bisulfate (Plavix), 75 MG PO Q48H, (Reported) Cyanocobalamin (Vitamin B-12) (B-12), 500 MG PO DAILY, (Reported) Docosahexanoic Acid/Epa (Fish Oil 1,000 Mg Softgel), 2,000 MG PO BID, (Reported) Fe Fumarate/Vit C/B12-If/FA (Ferocon Capsule), 325 MG PO BID, (Reported) Fenofibrate Nanocrystallized* (Tricor*), 134 MG PO DAILY, (Reported) Gabapentin (Neurontin), 1 CAP PO QAM, (Reported) Gabapentin (Neurontin), 2 CAP PO HS, (Reported) Glimepiride* (Amaryl*), 1 TAB PO DAILY, (Reported) Insulin Detemir (Levemir), 40 UNIT SQ HS, (Reported) Levothyroxine Sodium* (Synthroid*), 150 MCG PO DAILY, (Reported) Lisinopril* (Lisinopril*), 5 MG PO DAILY, (Reported) Metformin Hcl* (Glucophage ER*), 500 MG PO BID, (Reported) Pravastatin Sodium (Pravastatin Sodium), 0.5 TABLET PO HS, (Reported) Scheduled PRN Acetaminophen With Codeine* (Tylenol #3*), 1 TAB PO BID PRN for pain, (Reported) Albuterol Sulfate (Proair Hfa), 2 PUFFS IH Q4H PRN for SOB or wheezing, (Reported) Clonidine HCl (Clonidine HCl), 1 TAB PO DAILY PRN for high blood pressure, (Reported) Nitroglycerin (Nitroglycerin), 1 TAB SL for chest pain, (Reported) Nystatin (NYSTOP powder), 1 APPLIC TP PRN PRN for Per Protocol, (Reported) [Ketonazole], 1 APPLIC TOP DAILY PRN for itching, (Reported) Past Medical History Past Medical History: Coronary Artery Disease, Hypertension, Diabetes, Arthritis Past Surgical History: orthopedic surgeries Patient History: Patient reports no known family medical history. Drug Use: none Occupation: disabled Review of Systems ROS 10 point review of systems was performed and unless noted above in HPI is negative for acute process/complaint. Physical Exam Vital Signs: Temperature: 98.6, Source: Temporal, Heart Rate: 77, Respiratory Rate: 15, BP: 153/82, Pulse Oximetry: 98, Weight: 75.400 Physical Exam GENERAL: Awake, alert, oriented, GCS 15, no apparent distress, non-toxic appearing, answers questions, follows commands appropriately. Examined in triage HEENT: Atraumatic, normocephalic, pupils equal, extraocular muscles intact, sclerae anicteric, mucus membranes moist, oropharynx is clear, no stridor. NECK: supple, full active range of motion, trachea midline, no thyromegaly, no lymphadenopathy, no JVD. CARDIOVASCULAR: regular rate/rhythm, no murmurs/gallops/rubs, Pulses are 2+ in all extremities and symmetric. Capillary refill less than 2 seconds. PULMONARY: Nonlabored, good air movement ,no respiratory distress, speaking in full sentences, clear to auscultation bilaterally, no wheezing, no ronchi, no rales, no accessory muscle use. GASTROINTESTINAL: Soft, non-tender, non-distended, normal active bowel sounds, no organomegaly, no pulsatile masses, no CVA tenderness. NEUROLOGIC: Lucid with normal mental status. Normal facial symmetry. Moves all extremities symmetrically and with purpose. No truncal ataxia. Speech is fluid without evidence of dysarthria or aphasia, no focal deficits appreciated. MUSCULOSKELETAL: There is full range of motion of all extremities. There is no joint pain or joint swelling or joint erythema. There is no muscle pain or tenderness or swelling. EXTREMITIES: warm, well-perfused, no cyanosis, no clubbing, no edema, no acute deformities. Skin: warm, dry, no rashes or lesions, no jaundice, no petechiae orpurpura. No ecchymosis. PSYCHIATRIC: Normal affect, normal insight, normal concentration. Focused exam: [Posterior pharynx is erythematous, no exudate. No floor of the mouth elevation. No brawny submandibular erythema. No trismus.] Progress Results/Orders Results/Orders Orders - KEITH LORENZ DO Covid19 Binax Poc Result Entry (02/22/25 21:19) Chest,Single View (02/22/25 21:20) Monitor (02/22/25 21:20) Saline Lock (02/22/25 21:20) Oxygen (02/22/25 21:20) Hs Troponin I W Calculations (02/22/25 23:20) Hs Troponin I W Calculations (02/23/25 00:20) Completed Orders - KEITH LORENZ DO Chest,Single View (02/22/25 21:20) Cbc/Diff (02/22/25 21:20) BMP (02/22/25 21:20) PBNP (02/22/25 21:20) Electrocardiogram (02/22/25 21:20) Hs Troponin I W Calculations (02/22/25 21:20) Vital Signs 02/22/25 21:16 Temp 98.6 Pulse 77 Resp 15 B/P (MAP) 153/82 Pulse Ox 98 Laboratory Tests Test 02/22/25 21:19 02/22/25 22:29 SARS-CoV-2 Antigen (Rapid) Negative White Blood Count 4.4 L Red Blood Count 4.47 Hemoglobin 13.8 Hematocrit 41.5 Mean Corpuscular Volume 92.8 Mean Corpuscular Hemoglobin 30.8 Mean Corpuscular Hemoglobin Concent 33.2 Red Cell Distribution Width 16.0 H Platelet Count 200 Mean Platelet Volume 7.7 Neutrophils (%) (Auto) 56.1 Lymphocytes (%) (Auto) 32.2 Monocytes (%) (Auto) 8.0 Eosinophils (%) (Auto) 2.9 Basophils (%) (Auto) 0.8 Neutrophils # (Auto) 2.4 Lymphocytes # (Auto) 1.4 Monocytes # (Auto) 0.4 Eosinophils # (Auto) 0.1 Basophils # (Auto) 0.0 CBC Comment Sodium Level 138 Potassium Level 5.4 H Chloride Level 103 Carbon Dioxide Level 27.4 Anion Gap 8 Blood Urea Nitrogen 16 Creatinine 0.81 Estimated GFR/1.73 m2 69 BUN/Creatinine Ratio 19.8 Glucose Level 104 Calcium Level 9.8 Troponin I High Sensitivity 5 Pro-B-Type Natriuretic Peptide 120 Albumin 4.1 Chemistry Comments EKG/XRAY/CT/US/VASC/MRI EKG : Additional Comment EKG was obtained and interpreted by myself showing paced rhythm, rate of 71, normal ME interval, narrow QRS, no QT prolongation, left axis, no STEMI. Medical Decision Making Findings Facility Status: ED Holds, RME process The plan was discussed with the patient, who demonstrates clear understanding of the plan and is in agreement with the plan unless otherwise noted in the chart. All questions have been answered, all concerns were addressed unless otherwise documented. I was available throughout their ED stay for frequent reassessment and questions. Differential Diagnoses (considered and possible or likely): [With respect to fever and sore throat, differential includes but not limited to COVID, influenza, RSV, upper respiratory infection with the top of the viruses. With respect to chest pain, Differential diagnosis considered includes chest wall pain, pleurisy, pneumonia, pulmonary embolus, GERD, esophagitis, gastritis, anxiety, stress reaction, costochondritis, acute coronary syndrome, aortic dissection, pericarditis, myocarditis, or pneumothorax.] ??Differential Diagnoses (considered and unlikely, not requiring evaluation currently): [Aortic/great vessels dissection was considered but it is unlikely based on absence of ripping, tearing, migratory chest pain, absence of syncope or focal neurologic deficits, physical examination indicating equal and symmetric pulses.] MDM Data Please see [facility] for the following: Independent Historians and external Records Review. Historian: [Patient] Independent Historians: ?[Record review] Medication Management: [Reviewed medication list] Social History and determinants: [Reviewed] Please see the body of the note for the following: Any independent interpretations of ECG, imaging studies. All vitals signs/haemodynamics, ordered tests were independently reviewed and interpreted by myself. Nursing triage complaint and vitals reviewed, additional nursing notes were reviewed as available and I agree unless otherwise noted or documented in contradiction in the chart Vital Signs: Independently reviewed Labs: Independently interpreted Imaging: Independently interpreted Old Medical Records: Independently reviewed, see [facility] for relevant summary and information Pulse Oximetry: [98%] interpreted as [normal on room air] by me Additionally notably showing: [Hemodynamically stable. Unremarkable laboratory workup including negative troponin. COVID is negative.] Tests considered but not ordered include: [Echo and stress test has been considered for further chest pain workup, however the patient had a negative workup less than a month ago.] Social Determinants of Health Impact: Patient was evaluated in [facility] [place] to healthcare due to below par ratio of patient to medical providers. [] Comorbid Conditions Impacting Present Evaluation and Care/Treatment: [History of DE, recent TIA] Management Discussions with other Healthcare Providers: [None] Treatment and Disposition Medication Management (Given or considered): []. See EMR for details Consideration for Hospitalization/Escalation/Deescalation of Care: Admission for observation has been considered, and was offered to the patient, however she declines any chest pain workup given recent negative workup at [facility] during her TIA workup. ?ED Course:?[No clinical deterioration.] ?Shared decision making:?[Patient is hemodynamically stable for discharge home with follow with their primary care provider. [ ] Specific and cautious return precautions provided and discussed with full understanding. Any incidental findings were also discussed and follow up recommendations given. [] All questions answered. Patient/family were able to verbalize back return precautions. Patient/family agree to plan. Copies of imaging and laboratory studies were provided.] Code status:?FULL Please see the full Electronic Medical Record for full details of nursing documentation, medications list, other records of complete past medical history and conditions, vital signs, laboratory studies, and any radiologic study interpretations by radiologists. Portions of this note were completed using [employer] dictation software and as a result there may exist minor errors in spelling. I have reviewed elements of past family and social history and agree as included in note. Departure Disposition: 01 HOME / SELF CARE / HOMELESS Impression: Primary Impression: Fever Additional Impressions: Upper respiratory infection Left-sided chest pain Condition: Improved Discharge Instructions: Chest Pain Observation, Upper Respiratory Infection, Adult Additional Instructions: Your COVID test was negative. Your EKG showed paced rhythm without evidence of heart attack and your blood work was normal including normal heart marker. Referrals: NO PRIMARY CARE PROVIDER (PCP) Education Educated: Patient Educated regarding: diagnosis, treatment, prognosis, need for follow up Signature Scribe Signature: No scribe Attestation: This note accurately reflects clinical decisions, work performed by myself, DO KELECHI Jack NICHOLAS M DO Feb 22, 2025 21:31
--- NOTE | 2025-02-22 21:35 | ELECTROCARDIOGRAPH REPORT ---
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
--- NOTE | 2025-02-22 21:57 | RADIOLOGY REPORT ---
CHEST RADIOGRAPH Indication: CP Technique: Single frontal view of the chest was obtained COMPARISON: DI CHEST,SINGLE VIEW on DOS: 09/09/23 FINDINGS: Lines and Tubes: Dual-lead pacemaker noted overlying left chest wall. Multiple coils noted predominan tly at right lung base. Lungs: Clear. Pleura: No pleural effusion or pneumothorax. Cardiomediastinal contours: Unremarkable IMPRESSION: No acute abnormality identified. No appreciable change compared to the prior chest X-ray from August 25.
[2025-02-22 23:00] LABS: MEAN PLATELET VOLUME 7.7 FL (7.4-10.4); RED CELL DISTRIBUTION WIDTH 16.0 % (11.5-14.5)
[2025-02-22 23:09] LABS: CREATININE 0.81 MG/DL (0.40-0.90); PRO BRAIN NATRIURETIC PEPTIDE 120 PG/ML (0-125); TOTAL CARBON DIOXIDE 27.4 MMOL/L (24-32); eCRCL 53 ML/MIN; eGFR 69 ML/MIN
[2025-02-23 00:14] VITALS: BP 133/65; PULSE 67; RESP 15; O2SAT 100
== END 2025-02-23 00:17 | disposition home or self-care (01) ==
LOC: ER 21:01
DX: J06.9 Acute upper respiratory infection, unspecified (principal); R07.89 Other chest pain; R50.9 Fever, unspecified; I10 Essential (primary) hypertension; E11.9 Type 2 diabetes mellitus without complications; R06.02 Shortness of breath; I25.10 Atherosclerotic heart disease of native coronary artery without angina pectoris; M19.90 Unspecified osteoarthritis, unspecified site; Z88.5 Allergy status to narcotic agent; Z88.8 Allergy status to other drugs, medicaments and biological substances; Z20.822 Contact with and (suspected) exposure to COVID-19
CPT/HCPCS: 36415; 71045; 80048; 83880; 84484; 85025; 87811; 93005; 99285

== ENCOUNTER 2025-05-19 10:25 | Emergency (ER) | payer MEDICARE, MEDICAID ==
[~2025-05-19] VITALS: Ht 162.6 cm; Wt 93.3 kg
[2025-05-19 10:30] VITALS: BP 129/69; PULSE 74; RESP 20; TEMP 97.2; O2SAT 98
--- NOTE | 2025-05-19 11:03 | Physician Documentation ---
History of Present Illness ~ Chief Complaint: Ankle pain Stated Complaint: FALL X1 WEEK AGO/L ANKLE PAIN Time Seen by MD: 10:39 Primary Medical Doctor: Dr. Motta @ [facility] 75-year-old female who presents to the emergency department for evaluation of left ankle injury. Reports she injured her ankle one week ago continues to have an antalgic gait. Pain is to the medial and lateral ankle. There was no gross deformity. She has excellent cap refill. Tetanus witin 5 years: Yes Medication Reconciliation Allergies: Coded Allergies: celecoxib (Verified Allergy, Unknown, NERVES JUMPY/ ITCHING, 05/19/25) dabigatran etexilate (Unverified Allergy, Unknown, 05/19/25) BLEEDING hydromorphone (Unverified Allergy, Unknown, 05/19/25) pentazocine (Verified Allergy, Unknown, RESPIRATORY ( DECREASED), 05/19/25) rivaroxaban (Unverified Allergy, Unknown, 05/19/25) BLEEDING tramadol (Verified Allergy, Unknown, DIZZINESS,BREATHING,HVES, 05/19/25) tramadol HCl (Verified Allergy, Unknown, NERVES JUMPY, 02/22/25) Uncoded Allergies: TAPE (Allergy, Unknown, BLISTERS, 02/18/15) PLASTIC TAPE (Adverse Reaction, Unknown, 02/26/15) TAKES SKIN OFF Scheduled Acarbose* (Precose*), 50 MG PO HS, (Reported) Amiodarone Hcl (Cordarone), 1 TAB PO DAILY, (Reported) Ascorbic Acid* (Vitamin C*), 1,000 MG PO DAILY, (Reported) Aspirin (Aspir 81), 1 TAB PO DAILY, (Reported) Clopidogrel Bisulfate (Plavix), 75 MG PO Q48H, (Reported) Cyanocobalamin (Vitamin B-12) (B-12), 500 MG PO DAILY, (Reported) Docosahexanoic Acid/Epa (Fish Oil 1,000 Mg Softgel), 2,000 MG PO BID, (Reported) Fe Fumarate/Vit C/B12-If/FA (Ferocon Capsule), 325 MG PO BID, (Reported) Fenofibrate Nanocrystallized* (Tricor*), 134 MG PO DAILY, (Reported) Gabapentin (Neurontin), 1 CAP PO QAM, (Reported) Gabapentin (Neurontin), 2 CAP PO HS, (Reported) Glimepiride* (Amaryl*), 1 TAB PO DAILY, (Reported) Insulin Detemir (Levemir), 40 UNIT SQ HS, (Reported) Levothyroxine Sodium* (Synthroid*), 150 MCG PO DAILY, (Reported) Lisinopril* (Lisinopril*), 5 MG PO DAILY, (Reported) Metformin Hcl* (Glucophage ER*), 500 MG PO BID, (Reported) Pravastatin Sodium (Pravastatin Sodium), 0.5 TABLET PO HS, (Reported) Scheduled PRN Acetaminophen With Codeine* (Tylenol #3*), 1 TAB PO BID PRN for pain, (Reported) Albuterol Sulfate (Proair Hfa), 2 PUFFS IH Q4H PRN for SOB or wheezing, (Reported) Clonidine HCl (Clonidine HCl), 1 TAB PO DAILY PRN for high blood pressure, (Reported) Nitroglycerin (Nitroglycerin), 1 TAB SL for chest pain, (Reported) Nystatin (NYSTOP powder), 1 APPLIC TP PRN PRN for Per Protocol, (Reported) [Ketonazole], 1 APPLIC TOP DAILY PRN for itching, (Reported) Past Medical History Past Medical History: Coronary Artery Disease, Hypertension, Diabetes, Arthritis Past Surgical History: orthopedic surgeries Patient History: Patient reports no known family medical history. Drug Use: none Occupation: disabled Review of Systems All Other Systems at this time: Reviewed and Negative Musculoskeletal: Reports: see HPI Physical Exam Vital Signs: RN Vital Signs have been reviewed: Yes, Temperature: 97.2, Source: Temporal, Heart Rate: 74, Respiratory Rate: 20, BP: 129/69, Pulse Oximetry: 98, Weight: 93.300 Oxygen Flow Rate: 0 General Appearance: alert, WD/WN, mild distress, obese Head: normal inspection Respiratory: no respiratory distress Chest: no accessory muscle use Cardiovascular: normal peripheral pulses Gastrointestinal: non-tender Back: normal inspection Knees: normal inspection Ankles: limited ROM, pain, soft tissue tenderness Distal Function: no motor deficit, no sensory deficit Skin: normal color Lymphatic: normal inspection Neurologic: oriented x4 Psychiatric: normal mood/affect Progress Results/Orders Results/Orders Orders - LUCINDA CASTELLANOS PAC Ankle, Complete(3vw Min) (05/19/25 10:46) Completed Orders - LUCINDA CASTELLANOS PAC Ankle, Complete(3vw Min) (05/19/25 10:46) Vital Signs 05/19/25 10:30 Temp 97.2 Pulse 74 Resp 20 B/P (MAP) 129/69 Pulse Ox 98 O2 Flow Rate 0 Medical Decision Making Additional information obtaine: N/A Findings Examination and history warrants x-ray imaging to evaluate for bony pathologies such as fracture or dislocation or other unforeseen injuries. Preliminary x-ray imaging reviewed by myself shows no acute fracture dislocation. We will recommend cam walker boot for comfort and support and primary care follow up for re-evaluation in 1-2 weeks. General Diff Dx:Considerations: Include: Abrasion, Contusion, Fracture, Hematoma, Laceration, Malunion, Neurovascular injury, Open fracture, Sprain, Ulcer, Other Knee Diff Dx:Considerations: Include: Other (Noncontributory) Ankle Diff Dx:Considerations: Include: Arthritis, Contusion, DJD, Fracture-metatarsal, Fracture-fibula, Fracture-tarsal, Fracture-tibia, Sprain Foot Diff Dx:Considerations: Include: Other Toe Diff Dx:Considerations: Include: Other (Noncontributory) Departure Disposition: HOME / SELF CARE / HOMELESS Impression: Primary Impression: Sprain of ankle Qualified Codes: S93.402A - Sprain of unspecified ligament of left ankle, initial encounter Condition: Improved Discharge Instructions: Ankle Pain, Ankle Sprain Additional Instructions: Your x-rays today are reassuring for no fracture or dislocation. Please wear walking boot for comfort and support. Make follow up appointment with your primary care physician when he two weeks for repeat evaluation. Thank you for visiting [facility]. Referrals: NO PRIMARY CARE PROVIDER (PCP) Education Educated: Patient Educated regarding: diagnosis, treatment, prognosis, need for follow up Signature Scribe Signature: . Attestation: . LUCINDA CASTELLANOS PAC May 19, 2025 11:03
--- NOTE | 2025-05-19 11:04 | RADIOLOGY REPORT ---
EXAM: DI ANKLE, COMPLETE(3VW MIN), ANGIO LINE PLACEMENT(PICC NURSE) CLINICAL INDICATION: ANKLE PAIN,left TECHNIQUE: DI ANKLE, COMPLETE(3VW MIN), ANGIO LINE PLACEMENT(PICC NURSE) Comparison: DI FOOT, COMPLETE (3VW MIN) on DOS: 09/29/23 FINDINGS/IMPRESSION: There is no evidence of acute fracture or dislocation. The visualized joint space is well maintained. The alignment is anatomical. There is no radiopaque foreign body.
== END 2025-05-19 11:21 | disposition home or self-care (01) ==
LOC: ER 10:26
DX: S93.402A Sprain of unspecified ligament of left ankle, initial encounter (principal); E11.9 Type 2 diabetes mellitus without complications; I10 Essential (primary) hypertension; I25.10 Atherosclerotic heart disease of native coronary artery without angina pectoris; M19.90 Unspecified osteoarthritis, unspecified site; Z88.8 Allergy status to other drugs, medicaments and biological substances; X58.XXXA Exposure to other specified factors, initial encounter; Y93.89 Activity, other specified; Y92.89 Other specified places as the place of occurrence of the external cause; Y99.8 Other external cause status
CPT/HCPCS: 73610; 99283; L4360